=== PATIENT | male | born 1945 | race Caucasian/White ===

== ENCOUNTER → 2023-09-11 07:19 | Outpatient (REF) | payer MEDICARE, SELFPAY | LOC: RAD 07:19 | PROVIDERS: ATTENDING PHYSICIAN Internal Medicine Critical Care Medicine | DX: J32.9 Chronic sinusitis, unspecified (principal) | CPT/HCPCS: 70486 ==

== ENCOUNTER → 2023-09-17 14:08 | Outpatient (REF) | payer MEDICARE, SELFPAY ==
[2023-09-17 14:51] LABS: % Basophils 0.6 % (0-2); % Eosinophils 9.3 % (0-6); % Immature Granulocytes 0.2 % (0-0.5); % Lymphocytes 30.2 % (20.5-51.1); % Monocytes 9.7 % (1.7-9.3); Absolute Eosinophils 0.4 10^3/uL (0-0.7); Absolute Lymphocytes 1.4 10^3/uL (1.2-3.4); Absolute Monocytes 0.5 10^3/uL (0.1-0.6); Absolute Neutrophils 2.4 10^3/uL (1.4-6.5); Hematocrit 40.5 % (39.0-52.0); Hemoglobin 14.3 g/dL (13.0-18.0); Mean Corp Hgb Conc. 35.3 g/dL (33.0-37.0); Mean Corpuscular Hgb 35.5 pg (27.0-31.0); Mean Corpuscular Volume 100.5 fL (80.0-94.0); Mean Platelet Volume 9.7 fL (7.4-10.4); Nucleated Red Blood Cells % 0 % (-); Platelet Count 160 10^3/uL (130-400); Red Blood Cell Count 4.03 10^6/uL (4.70-6.10); Red Cell Dist. Width 13.2 % (11.5-14.5); White Blood Cell Count 4.7 10^3/uL (4.8-10.8)
[2023-09-20 13:15] LABS: Alternaria tenuis <0.10 kU/L (<=0.34); Aspergillus fumigatus <0.10 kU/L (<=0.34); Bermuda Grass <0.10 kU/L (<=0.34); Birch Tree <0.10 kU/L (<=0.34); Box Elder/Maple Tree <0.10 kU/L (<=0.34); Cat Epithelium/Dander <0.10 kU/L (<=0.34); Common Pigweed <0.10 kU/L (<=0.34); Common/Short Ragweed <0.10 kU/L (<=0.34); Cottonwood Tree <0.10 kU/L (<=0.34); Dermatophagoides farinae <0.10 kU/L (<=0.34); Dermatophagoides pteronyssinus <0.10 kU/L (<=0.34); Dog Dander <0.10 kU/L (<=0.34); Elm Tree <0.10 kU/L (<=0.34); German Cockroach <0.10 kU/L (<=0.34); Hormodendrum <0.10 kU/L (<=0.34); IgE 5 kU/L (<=214); Mountain Cedar Tree <0.10 kU/L (<=0.34); Mouse Epithelium <0.10 kU/L (<=0.34); Mucor racemosus <0.10 kU/L (<=0.34); Mugwort Weed <0.10 kU/L (<=0.34); Oak Tree <0.10 kU/L (<=0.34); Penicillium notatum <0.10 kU/L (<=0.34); Sheep Sorrel Weed <0.10 kU/L (<=0.34); Sycamore Tree <0.10 kU/L (<=0.34); Timothy Grass <0.10 kU/L (<=0.34); Walnut Tree <0.10 kU/L (<=0.34); White Ash Tree <0.10 kU/L (<=0.34); White Mulberry Tree <0.10 kU/L (<=0.34)
== END ==
LOC: REG 14:08
PROVIDERS: ATTENDING PHYSICIAN Nurse Practitioner Adult Health
DX: J45.21 Mild intermittent asthma with (acute) exacerbation (principal)
CPT/HCPCS: 36415; 82785; 85025; 86003

== ENCOUNTER → 2023-12-09 10:49 | Outpatient (REF) | payer MEDICARE, SELFPAY ==
[2023-12-09 12:26] LABS: % Basophils 0.4 % (0-2); % Eosinophils 5.9 % (0-6); % Immature Granulocytes 0.2 % (0-0.5); % Lymphocytes 29.3 % (20.5-51.1); % Monocytes 10.3 % (1.7-9.3); % Neutrophils 53.9 % (42.2-75.2); Absolute Eosinophils 0.3 10^3/uL (0-0.7); Absolute Lymphocytes 1.3 10^3/uL (1.2-3.4); Absolute Monocytes 0.5 10^3/uL (0.1-0.6); Absolute Neutrophils 2.5 10^3/uL (1.4-6.5); Hematocrit 41.2 % (39.0-52.0); Hemoglobin 13.7 g/dL (13.0-18.0); Mean Corp Hgb Conc. 33.3 g/dL (33.0-37.0); Mean Corpuscular Hgb 34.3 pg (27.0-31.0); Mean Platelet Volume 10.1 fL (7.4-10.4); Nucleated Red Blood Cells % 0 % (-); Platelet Count 154 10^3/uL (130-400); Red Cell Dist. Width 12.7 % (11.5-14.5); White Blood Cell Count 4.6 10^3/uL (4.8-10.8)
[2023-12-09 13:19] LABS: Erythrocyte Sed Rate 15 mm/hour (0-20)
[2023-12-09 13:26] LABS: C-Reactive Protein < 5.00 mg/L (0.0-10.00)
[2023-12-09 13:38] LABS: ALT (SGPT) 37 U/L (0-50); AST (SGOT) 35 U/L (17-59); Albumin 3.6 g/dl (3.5-5.0); Alkaline Phosphatase 81 U/L (38-126); Blood Urea Nitrogen 14 mg/dl (9-20); Calcium 9.2 mg/dl (8.4-10.2); Carbon Dioxide 26 mmol/L (22-30); Chloride 108 mmol/L (98-107); Glucose 80 mg/dl (70-99); Potassium 4.5 mmol/L (3.5-5.1); Sodium 139 mmol/L (135-145); Total Bilirubin 0.4 mg/dl (0.2-1.3); Total Protein 6.1 g/dl (6.3-8.2); eGFR > 60.00
[2023-12-09 13:42] LABS: Vitamin D, 25-OH*** 42.7 ng/mL (30-80)
[2023-12-09 13:56] LABS: TSH 1.63 uIU/ml (0.47-4.68)
[2023-12-09 14:15] LABS: Vitamin B12 793 pg/ml (239-931)
[2023-12-10 15:13] LABS: Rheumatoid Agglutinin Less Than 10 IU (<10 IU)
[2023-12-12 13:22] LABS: ANA, IgG Reflex to HEp-2 None Detected (None Detected)
== END ==
LOC: REG 10:49
PROVIDERS: ATTENDING PHYSICIAN Nurse Practitioner Adult Health
DX: R53.83 Other fatigue (principal); M79.18 Myalgia, other site; Z79.899 Other long term (current) drug therapy; Z13.29 Encounter for screening for other suspected endocrine disorder
CPT/HCPCS: 36415; 80053; 82306; 82607; 84443; 85025; 85652; 86038; 86140; 86430

== ENCOUNTER → 2024-02-05 11:52 | Outpatient (REF) | payer MEDICARE, SELFPAY | LOC: RCS 11:52 | PROVIDERS: ATTENDING PHYSICIAN Internal Medicine Cardiovascular Disease; FAMILY PHYSICIAN Family Medicine | DX: I25.10 Atherosclerotic heart disease of native coronary artery without angina pectoris (principal); I48.0 Paroxysmal atrial fibrillation; R06.02 Shortness of breath | CPT/HCPCS: 93005 ==

== ENCOUNTER → 2024-03-28 09:06 | Outpatient (REF) | payer MEDICARE, SELFPAY ==
[2024-03-28 09:56] LABS: % Basophils 0.7 % (0-2); % Eosinophils 7.1 % (0-6); % Lymphocytes 26.2 % (20.5-51.1); % Monocytes 10.2 % (1.7-9.3); % Neutrophils 55.8 % (42.2-75.2); Absolute Eosinophils 0.3 10^3/uL (0-0.7); Absolute Lymphocytes 1.2 10^3/uL (1.2-3.4); Absolute Monocytes 0.5 10^3/uL (0.1-0.6); Absolute Neutrophils 2.5 10^3/uL (1.4-6.5); Hematocrit 39.6 % (39.0-52.0); Hemoglobin 13.5 g/dL (13.0-18.0); Mean Corp Hgb Conc. 34.1 g/dL (33.0-37.0); Mean Corpuscular Hgb 34.4 pg (27.0-31.0); Mean Platelet Volume 9.7 fL (7.4-10.4); Nucleated Red Blood Cells % 0 % (-); Platelet Count 148 10^3/uL (130-400); Red Blood Cell Count 3.92 10^6/uL (4.70-6.10); Red Cell Dist. Width 13.1 % (11.5-14.5); White Blood Cell Count 4.5 10^3/uL (4.8-10.8)
[2024-03-28 11:11] LABS: ALT (SGPT) 22 U/L (0-50); AST (SGOT) 30 U/L (17-59); Albumin 3.5 g/dl (3.5-5.0); Alkaline Phosphatase 71 U/L (38-126); Blood Urea Nitrogen 15 mg/dl (9-20); Calcium 9.4 mg/dl (8.4-10.2); Carbon Dioxide 24 mmol/L (22-30); Chloride 106 mmol/L (98-107); Glucose 89 mg/dl (70-99); HDL Cholesterol 54 mg/dl; LDL Cholesterol, Calculated 68 mg/dl; Potassium 4.5 mmol/L (3.5-5.1); Sodium 138 mmol/L (135-145); Total Bilirubin 0.6 mg/dl (0.2-1.3); Total Cholesterol 130 mg/dl (50-199); Total Protein 5.8 g/dl (6.3-8.2); Triglyceride 40 mg/dl (10-149); Very Low Density Lipoprotein 8 mg/dl (0-30); eGFR > 60.00
[2024-03-28 11:17] LABS: TSH Reflex To Free T4 1.72 uIU/ml (0.47-4.68)
== END ==
LOC: REG 09:06
PROVIDERS: ATTENDING PHYSICIAN Family Medicine
DX: E78.2 Mixed hyperlipidemia (principal); D72.819 Decreased white blood cell count, unspecified; Z13.1 Encounter for screening for diabetes mellitus; Z13.29 Encounter for screening for other suspected endocrine disorder
CPT/HCPCS: 36415; 80053; 80061; 84443; 85025

== ENCOUNTER → 2024-08-19 09:57 | Outpatient (REF) | payer MEDICARE, SELFPAY ==
[2024-08-19 12:03] LABS: % Basophils 0.2 % (0-2); % Eosinophils 0.2 % (0-6); % Immature Granulocytes 0.2 % (0-0.5); % Monocytes 2.2 % (1.7-9.3); % Neutrophils 88.2 % (42.2-75.2); Absolute Lymphocytes 0.6 10^3/uL (1.2-3.4); Absolute Monocytes 0.1 10^3/uL (0.1-0.6); Absolute Neutrophils 5.7 10^3/uL (1.4-6.5); Hematocrit 42.2 % (39.0-52.0); Mean Corp Hgb Conc. 33.2 g/dL (33.0-37.0); Mean Corpuscular Hgb 34.3 pg (27.0-31.0); Mean Corpuscular Volume 103.4 fL (80.0-94.0); Nucleated Red Blood Cells % 0 % (-); Platelet Count 175 10^3/uL (130-400); Red Blood Cell Count 4.08 10^6/uL (4.70-6.10); Red Cell Dist. Width 13.1 % (11.5-14.5); White Blood Cell Count 6.4 10^3/uL (4.8-10.8)
[2024-08-19 12:11] LABS: Erythrocyte Sed Rate 19 mm/hour (0-20)
[2024-08-19 12:53] LABS: ALT (SGPT) 24 U/L (0-50); AST (SGOT) 27 U/L (17-59); Albumin 4.1 g/dl (3.5-5.0); Alkaline Phosphatase 78 U/L (38-126); Blood Urea Nitrogen 18 mg/dl (9-20); Calcium 8.8 mg/dl (8.4-10.2); Carbon Dioxide 29 mmol/L (22-30); Chloride 103 mmol/L (98-107); Glucose 104 mg/dl (70-99); HDL Cholesterol 76 mg/dl; LDL Cholesterol, Calculated 79 mg/dl; Potassium 4.7 mmol/L (3.5-5.1); Sodium 139 mmol/L (135-145); Total Bilirubin 0.8 mg/dl (0.2-1.3); Total Cholesterol 161 mg/dl (50-199); Total Protein 6.6 g/dl (6.3-8.2); Triglyceride 33 mg/dl (10-149); Very Low Density Lipoprotein 6 mg/dl (0-30); eGFR > 60.00
[2024-08-19 12:55] LABS: C-Reactive Protein < 5.00 mg/L (0.0-10.00)
[2024-08-19 13:03] LABS: Rheumatoid Agglutinin Less Than 10 IU (<10 IU)
[2024-08-21 06:35] LABS: SSA 52 (Ro)(ENA) Ab, IgG 1 AU/mL (0-40); SSA 60 (Ro)(ENA) Ab, IgG 0 AU/mL (0-40); SSB (La)(ENA) Ab, IgG 0 AU/mL (0-40)
[2024-08-21 09:52] LABS: ANA, IgG Reflex to HEp-2 None Detected (None Detected)
== END ==
LOC: REG 09:57
PROVIDERS: ATTENDING PHYSICIAN Family Medicine
DX: E78.2 Mixed hyperlipidemia (principal); D72.819 Decreased white blood cell count, unspecified; Z13.1 Encounter for screening for diabetes mellitus; M25.50 Pain in unspecified joint; R76.8 Other specified abnormal immunological findings in serum; M54.2 Cervicalgia
CPT/HCPCS: 36415; 72040; 80053; 80061; 85025; 85652; 86038; 86140; 86235; 86430; 86618

== ENCOUNTER → 2024-09-15 06:42 | Outpatient (REF) | payer MEDICARE, SELFPAY | LOC: MRI 3T 06:42 | PROVIDERS: ATTENDING PHYSICIAN Physician Assistant; FAMILY PHYSICIAN Family Medicine | DX: M54.12 Radiculopathy, cervical region (principal) | CPT/HCPCS: 72141 ==

== ENCOUNTER 2024-12-08 14:23 | Emergency (ER) | payer MEDICARE, SELFPAY ==
[2024-12-08 14:29] VITALS: BP 128/81
--- NOTE | 2024-12-08 16:24 | ED.GENMED ---
History of Present Illness
General
Chief Complaint: Skin Surface Trauma
Source: patient
Exam Limitations: none
Time Seen by Provider: 12/08/24 16:17
Nursing documentation reviewed up to this point in time: agreed with
History of Present Illness
History of Present Illness:
Patient is a 79-year-old male who presents to the ER complaining of laceration to his right lower leg from a car door. He denies any other injuries. He is on Eliquis for A-fib. He is unsure of his last tetanus.
Past History
Past History
ED Past Medical History: Arrthythmia (SVT), Asthma and Other (Recurrent pericardial effusions with pericardectomy, GI bleed, BPH)
ED Past Surgical History: Cardiac (Pericardiectomy)
Social History
Tobacco: Non-smoker
Alcohol: None
Drug: None
Personal:
Living: with family
Employment: Retired
Family History
Family History: Other (Noncontributory)
Review of Systems
Review of Systems
Allergies reviewed?: Yes
All Other Systems: ROS reviewed and negative except as documented in HPI and ROS
Constitutional: Reports no symptoms
Musculoskeletal: Reports no symptoms
Skin: Reports other (right lower leg laceration )
Neurological: Reports no symptoms
Psychiatric: Reports no symptoms
Phy Exam
General Physical Exam
General Presentation: no apparent distress
General age: appears stated age
General Skin: warm and dry
General Habitus: normal
General Mental: alert
Neurological Exam
Neurological Exam: alert and oriented x3
Musculoskeletal Exam
Musculoskeletal Exam: full ROM and other (rle with approx 4 cm partial thickness laceration to right lateral leg no active bleeding )
Skin Exam
Skin Exam: normal color and warm/dry
Psychiatric Exam
Psychiatric Exam: normal mood/affect
Course
Orders/Labs/Results
Orders:
Orders
12/08/24 16:22
Tetanus/Diphth/Acelpertussis [Adacel] 0.5 ml IM .ONCE ONE
12/08/24 16:23
Lidocaine/Epinephrine/Tetracai [Let Topical Anesthetic Gel] 3 ml TOPICAL NOW STA
Vital Signs
Initial and Last Documented VS:
Initial Vital Signs
Temp Pulse Resp BP Pulse Ox
98.4 F 85 18 128/81 97
12/08/24 14:29 12/08/24 14:29 12/08/24 14:29 12/08/24 14:29 12/08/24 14:29
Last Documented Vital Signs
Temp Pulse Resp BP Pulse Ox
98.4 F 85 18 128/81 97
12/08/24 14:29 12/08/24 14:29 12/08/24 14:12/08/24 14:29 12/08/24 14:29
Procedures
Laceration Closure
Right Lateral Leg:
Status of Wound: clean
Size of Wound in cm: 4
Description of Wound Edges: sharp
Preparation: cleaned with saline
Type of Closure: other (steri strips )
MDM/Problems Addressed
Differential Diagnosis Includes:
Not limited laceration
MDM/Problems Addressed:
[facility] with partial[facility]thickness [facility] no active bleeding was irrigated with copious lana normal saline tetanus is up-to-date. Wound was repaired with Steri-Strips patient tolerated procedure well wound
care reviewed.
Chronic conditions affecting care:
on eliquis for a stonefib
*Pulse Oximetry
Patient hypoxic: no
*Critical Care Note
Total Time (30-74mins, 75-104mins- exclusive of procedures): Not Applicable
ED Attending Note
-
Portions of this chart may have been created with voice recognition software.� Occasional wrong word or��sound alike� substitutions may have occurred due to the inherent limitations of voice recognition software.
Discharge Plan
Departure
Patient Disposition: Home (Routine Discharge)
Date of Disposition: 12/08/24
Time of Disposition: 17:25
Patient with high blood pressure during this ER visit?: Yes
Condition: Fair
Covid-19: Not Applicable
Discharge Problem:
Laceration of skin
Instructions: Wound Care (DC), BLOOD PRESSURE, Laceration
Prescriptions:
No Action
finasteride 5 MG tablet
5 mg PO DAILY
alfuzosin 10 MG tablet extended release 24 hr
10 mg PO DAILY
docusate sodium 100 MG capsule
200 mg PO BID
cyclosporine [Restasis] 10 DROPS dropperette
1 drp BOTH EYES HS
rosuvastatin 10 MG tablet
10 mg PO DAILY
bupropion HCl 300 MG tablet extended release 24 hr
300 mg PO DAILY
zolpidem [Ambien CR] 12.5 MG tablet,ext release multiphase
12.5 mg PO HS
melatonin 5 MG tablet
5 mg PO HS
Centrum Men 1 EACH tablet
1 ea PO DAILY
azithromycin 250 mg Tablet
250 mg PO Q48H
montelukast 10 mg Tablet
10 mg PO DAILY
omeprazole 20 MG tablet,disintegrat, delay rel
20 mg PO DAILY
acetaminophen 500 mg Tablet
500 mg PO BID PRN (Reason: mild pain/fever)
coenzyme Q10 [Co Q-10] 100 mg Capsule
100 mg PO DAILY
Eliquis 5 mg Tablet
5 mg PO BID Qty: 60 0RF
metoprolol succinate [Toprol XL] 50 mg Tablet Extended Release 24 Hr
37.5 mg PO HS
levocetirizine [Xyzal] 5 mg Tablet
5 mg PO HS
fluticasone furoate-vilanterol [Breo Ellipta] 200-25 mcg/dose Blister With Device
1 inh INHALATION DAILY
pantoprazole [Protonix] 40 mg tablet,delayed release (DR/EC)
40 mg PO DAILY Qty: 14 0RF
Rx Instructions:
Daily for 2 weeks post procedure then stop
Referrals:
Doron Bhakta Jr., DO [Family Provider] -
Activity Restrictions/Additional Instructions:
Keep wound clean and dry for the next 24 to 48 hours. After then you may lightly get area wet. Trim Steri-Strips as discussed. Do not remove them they will fall off on their own. Please see your family doctor in the next 2 to 3 days for wound
check. Return if any evidence of infection, if increased pain swelling redness drainage fever chills.
Interventions
Interventions:
*Risk Screen - Suicide Last Done: 12/08/24 14:29
*General Assessment Last Done: 12/08/24 14:29
*Neglect/Abuse Screening Last Done: 12/08/24 14:29
*ED- Fall Risk Assessment Last Done: 12/08/24 14:29
*ED COVID-19 Vaccine History Last Done: 12/08/24 14:29
*Nursing Disposition Last Done: 12/08/24 18:12
ED-Skin Assessment Last Done: 12/08/24 16:48
Discharge Date and Time
Discharge Date/Time: 12/08/24 18:13
Print Language: BOLIVIAN
[2024-12-08] MEDS: LET TOPICAL ANESTHETIC GEL 3 ML TOPICAL (16:36)
[2024-12-08] MEDS: ADACEL 0.5 ML IM (16:40)
[2024-12-08 16:47] VITALS: BMI 29.3
== END 2024-12-08 18:13 | disposition home or self-care (01) ==
LOC: EMR 14:23
PROVIDERS: EMERGENCY PHYSICIAN Emergency Medicine; FAMILY PHYSICIAN Family Medicine
DX: S81.811A Laceration without foreign body, right lower leg, initial encounter (principal); W22.8XXA Striking against or struck by other objects, initial encounter; Z23 Encounter for immunization; I48.91 Unspecified atrial fibrillation; J45.909 Unspecified asthma, uncomplicated; N40.0 Benign prostatic hyperplasia without lower urinary tract symptoms; Z79.01 Long term (current) use of anticoagulants
CPT/HCPCS: 99282; 12002; 90471; 90715

== ENCOUNTER 2025-01-17 06:18 | Day surgery (SDC) | payer MEDICARE, SELFPAY | END 2025-01-17 13:44 | disposition home or self-care (01) | LOC: GI 06:18 | PROVIDERS: ATTENDING PHYSICIAN Specialist; FAMILY PHYSICIAN Family Medicine | DX: K22.70 Barrett's esophagus without dysplasia (principal) | CPT/HCPCS: 43239; 88305 ==

== ENCOUNTER → 2025-01-18 15:16 | Outpatient (REF) | payer MEDICARE, SELFPAY | LOC: DHSLP 15:16 | PROVIDERS: ATTENDING PHYSICIAN Internal Medicine Critical Care Medicine; FAMILY PHYSICIAN Family Medicine | DX: G47.33 Obstructive sleep apnea (adult) (pediatric) (principal); R09.02 Hypoxemia | CPT/HCPCS: 95800 ==

== ENCOUNTER → 2025-02-24 12:19 | Outpatient (REF) | payer MEDICARE, SELFPAY ==
[2025-02-28 17:59] LABS: Lyme Ab Western Blot IgG Negative (Negative); Lyme Ab Western Blot IgM Negative (Negative)
== END ==
LOC: REG 12:19
PROVIDERS: ATTENDING PHYSICIAN Dermatology; FAMILY PHYSICIAN Family Medicine
DX: A69.20 Lyme disease, unspecified (principal)
CPT/HCPCS: 36415; 86617

== ENCOUNTER → 2025-03-09 09:32 | Outpatient (REF) | payer MEDICARE, SELFPAY ==
[2025-03-09 09:59] LABS: Hematocrit 39.2 % (39.0-52.0); Hemoglobin 13.0 g/dL (13.0-18.0); Mean Corp Hgb Conc. 33.2 g/dL (33.0-37.0); Mean Corpuscular Volume 102.1 fL (80.0-94.0); Nucleated Red Blood Cells % 0 % (-); Platelet Count 141 10^3/uL (130-400); Red Cell Dist. Width 13.5 % (11.5-14.5)
[2025-03-09 10:39] LABS: ALT (SGPT) 20 U/L (0-50); AST (SGOT) 23 U/L (17-59); Albumin 3.7 g/dl (3.5-5.0); Alkaline Phosphatase 54 U/L (38-126); Blood Urea Nitrogen 14 mg/dl (9-20); Calcium 9.4 mg/dl (8.4-10.2); Carbon Dioxide 29 mmol/L (22-30); Chloride 107 mmol/L (98-107); Glucose 93 mg/dl (70-99); HDL Cholesterol 55 mg/dl; LDL Cholesterol, Calculated 52 mg/dl; Potassium 4.9 mmol/L (3.5-5.1); Sodium 138 mmol/L (135-145); Total Protein 6.0 g/dl (6.3-8.2); Very Low Density Lipoprotein 9 mg/dl (0-30); eGFR > 60.00
== END ==
LOC: REG 09:32
PROVIDERS: ATTENDING PHYSICIAN Family Medicine
DX: E78.2 Mixed hyperlipidemia (principal); D72.819 Decreased white blood cell count, unspecified; Z13.1 Encounter for screening for diabetes mellitus; Z13.29 Encounter for screening for other suspected endocrine disorder
CPT/HCPCS: 36415; 80053; 80061; 84443; 85025